=== PATIENT | female | born 1960 | race Caucasian/White ===

== ENCOUNTER 2021-11-03 01:34 | Day surgery (SDC) | payer OTHER, SELFPAY ==
[2021-11-03 08:43] VITALS: BP 122/84; PULSE 102; RESP 16; TEMP 36.2; O2SAT 100
[2021-11-03] MEDS: LACTATED RINGERS 1,000 ML 150 ML IV CONT (08:47)
--- NOTE | 2021-11-03 08:56 | WPDGICN ---
Assessment and Plan Assessment and plan (1) Family history of colonic polyps: Code(s): Z83.71 - Family history of colonic polyps Status: Acute Assessment and Plan: Patient presents for screening colonoscopy. Family history of colon polyps recently identified in her son. Plan is for surveillance colonoscopy now we may need to consider this at intervals in the future. Further recommendations will be given after endoscopy. GI Consult Note Consult date/time: 11/03/21 08:56 HPI: Tammie Harding is a 60 year old female Presents for screening colonoscopy. Patient's current weight appetite bowel movements are normal. She denies abdominal pain. She has had no bleeding. Family history is significant her son was identified as having several colon polyps recently. Patient presents today for neoplasia screening. She did have an unremarkable colonoscopy 10 years ago. Review of Systems Review of Systems: All systems reviewed & are unremarkable except as noted in HPI and below PMFSH Family History Family History (Updated 04/05/14 @ 07:13 by DOCTOR UNKNOWN) Mother Hypertension, Onset Age: 81 Family history of kidney disease Family history of coronary artery disease, Onset Age: 77 Social History Social History Smoking status: Never smoker Alcohol intake: current Drinks per week: 3 Substance use: never Substance use type: does not use Living arrangements: with friend(s) Spiritual care concerns: No Meds Home Medications and Allergies Home Medications Medication Instructions Recorded Confirmed Type ezetimibe 10 mg PO DAILY 10/22/21 11/03/21 History Allergies Allergy/AdvReac Type Severity Reaction Status Date / Time No Known Allergies Allergy Mild Verified 11/03/21 08:41 Vital Signs Vital Signs - 24 hr 11/03/21 08:43 Temperature 97.1 F L Pulse Rate 102 H Respiratory Rate 16 Blood Pressure 122/84 Pulse Oximetry 100 Exam Narrative: Physical exam reveals patient to be alert. Vital signs stable. HEENT exam is unremarkable. Patient is anicteric. Lungs are clear to auscultation and percussion. Heart is without murmur or extra sounds. Abdominal exam bowel sounds present soft nontender with no organomegaly. Digital external rectal exam is normal.
--- NOTE | 2021-11-03 09:20 | WPDANESEPPF ---
Anes - Initial Pre Proc Eval Procedure: Operation Date: 11/03/21 09:45 Proposed Procedures p Screening Colonoscopy - Mendel Osborne MD Date/Time: 11/03/21 09:20 Surgeon: Mendel Osborne MD Pre Op Diagnosis: neoplasm screening Patient Data Age: 60 Gender: F Height: 1.68 m Weight: 55.6 kg Last Vital Signs Temp 36.2 C L 11/03/21 08:43 Pulse 102 H 11/03/21 08:43 Resp 16 11/03/21 08:43 BP 122/84 11/03/21 08:43 Pulse Ox 100 11/03/21 08:43 Allergies Allergy/AdvReac Type Severity Reaction Status Date / Time No Known Allergies Allergy Mild Verified 11/03/21 08:41 Home Medications Medication Instructions Recorded Confirmed Type ezetimibe 10 mg PO DAILY 10/22/21 11/03/21 History Patient hx anesthesia problems: none Family hx anesthesia problems: none Results Review: All pre-operative results and documents have been reviewed as part of the pre-operative evaluation. [facility] Family History Family History (Updated 04/05/14 @ 07:13 by DOCTOR UNKNOWN) Mother Hypertension, Onset Age: 81 Family history of kidney disease Family history of coronary artery disease, Onset Age: 77 Social History Social History Smoking status: Never smoker Alcohol intake: current Drinks per week: 3 Substance use: never Substance use type: does not use Living arrangements: with friend(s) Spiritual care concerns: No Anes - Eval Final PreProcedure Day of Procedure 11/03/21 09:20 Patient weight: normal Heart: regular rate and rhythm Lungs: clear to auscultation and normal air movement Airway: Mallampati scale class II Neurological: alert and oriented Last oral intake: >/= 8 hours ASA classification: II Emergent: no Anesthetic plan: proceed Anesthesia type and monitoring: general GIVS Results Review: All pre-operative results and documents have been reviewed as part of the pre-operative evaluation. Informed Consent: The patient's anesthetic plan and its attendant risks and benefits were discussed with the patient/family/POA. Questions were solicited and answers provided to the satisfaction of the patient/family/POA.
[2021-11-03 09:47] VITALS: BP 126/71; PULSE 94; RESP 25; O2SAT 100
[2021-11-03 09:57] VITALS: BP 132/75; PULSE 93; RESP 16; O2SAT 100
[2021-11-03 10:07] VITALS: BP 128/79; PULSE 95; RESP 18; O2SAT 100
== END 2021-11-03 10:14 | disposition home or self-care (01) ==
PROVIDERS: PCP Physician Assistant; Visit Provider Internal Medicine Gastroenterology
PROC: 0DJD8ZZ Inspection of Lower Intestinal Tract, Via Natural or Artificial Opening Endoscopic (ICD-10-PCS; CPT 45378; principal; 2021-11-03 09:45)
DX: Z12.11 Encounter for screening for malignant neoplasm of colon (principal); K64.8 Other hemorrhoids; K57.30 Diverticulosis of large intestine without perforation or abscess without bleeding
CPT/HCPCS: 45378; J2704; J7120

== ENCOUNTER → 2022-04-24 12:37 | Outpatient (CLI) | payer OTHER, SELFPAY ==
--- NOTE | ~2022-04-24 | US_ITS ---
EXAMINATION: US transvaginal DATE: 04/24/2022 13:13 INDICATION: Unspecified ovarian cyst. Adnexal fullness on the left. TECHNIQUE: Multiple transvaginal sonographic images of the pelvis were obtained. COMPARISON: Ultrasound pelvis 02/06/17 FINDINGS: The uterus measures 9.1 x 5.1 x 4.8 cm. There is no free fluid in the pelvis. The endometrial complex measures 4 mm in thickness. There is a 1.7 cm subserosal fibroid. There is a 4.5 cm subserosal fibro id. The right ovary is not visualized. The left ovary measures 3.8 x 2.9 x 4.1 cm. There is a 3.2 cm hypoechoic mass with low-level echoes and septation in left ovary. IMPRESSION: 1. Uterine fibroids. 2. 3.2 cm mass in left ovary, which may be benign or malignant. Consider surgical evaluation. Reviewed, dictated and finalized at location A. IMPRESSION: 1. Uterine fibroids. 2. 3.2 cm mass in left ovary, which may be benign or malignant. Consider surgic al evaluation.
== END ==
PROVIDERS: PCP Physician Assistant; Visit Provider Nurse Practitioner
DX: N83.202 Unspecified ovarian cyst, left side (principal); D25.9 Leiomyoma of uterus, unspecified
CPT/HCPCS: 76830

== ENCOUNTER → 2022-12-02 09:49 | Outpatient (CLI) | payer OTHER, SELFPAY ==
--- NOTE | ~2022-12-02 | XR_ITS ---
EXAMINATION:[id number] DATE: 12/02/2022 11:45 INDICATION: Neck pain TECHNIQUE: AP, lateral, lateral swimmers and odontoid views of the cervical spine are provided. COMPARISON: None FINDINGS: Alignment is normal. There are changes of anterior fusion at C5-6. The odontoid process is intact. No fracture is identified. The vertebral body heights are maintained. There is moderate loss of intervertebral disc space height at C6-7. Small degenerative osteophytes project from the anterior endplates of multiple vertebral bodies. There is multilevel mild to moderate facet and uncovertebral joint osteoarthritis. Prevertebral soft tissues are normal. IMPRESSION: 1. Mild cervical spondylosis without acute findings. Reviewed, dictated and finalized at location B.
--- NOTE | ~2022-12-02 | MR_ITS ---
EXAMINATION: MR brain/brain stem wo/w con DATE: 12/02/2022 10:33 INDICATION: Headache. TECHNIQUE: Magnetic resonance imaging (MRI) of the brain and brainstem was performed without and with 10 mL MultiHance intravenous contrast. COMPARISON: None. FINDINGS: There are scattered areas of nonspecific increased T2-weighted signal intensity in the cere bral white matter, which is within normal limits for the patient's age. There is no intracranial hemo rrhage, acute infarction, or abnormal intracranial mass lesion. The ventricles are normal in size. Th ere is a small left mastoid effusion. The orbits are normal. IMPRESSION: 1. Normal aging brain. Reviewed, dictated and finalized at location A. IMPRESSION: 1. Normal aging brain.
== END ==
PROVIDERS: PCP Physician Assistant; Visit Provider Physician Assistant
DX: M47.812 Spondylosis without myelopathy or radiculopathy, cervical region (principal); M54.2 Cervicalgia; R51.9 Headache, unspecified
CPT/HCPCS: 70553; 72040; A9577

== ENCOUNTER 2023-11-25 13:39 | Outpatient (CLI) | payer OTHER, SELFPAY ==
--- NOTE | ~2023-11-25 | XR_ITS ---
EXAM: XR foot LT min 3V DATE: 11/25/2023 14:36 HISTORY: Left foot pain . COMPARISON: None available. FINDINGS: Slightly decreased mineralization. No fracture or dislocation. No lytic or blastic lesion. Mild joint space narrowing and osteophytosis at the first MTP joint. No erosion or periosteal change . Soft tissues within normal limits. IMPRESSION: Mild first MTP joint osteoarthritis. Reviewed, dictated and finalized at location K.
== END 2023-11-25 13:40 ==
LOC: MICIMG 13:41
PROVIDERS: PCP Chiropractor; Visit Provider Chiropractor
DX: M19.072 Primary osteoarthritis, left ankle and foot (principal)
CPT/HCPCS: 73630

== ENCOUNTER 2024-03-03 14:13 | Outpatient (CLI) | payer OTHER, SELFPAY ==
--- NOTE | ~2024-03-03 | XR_ITS ---
EXAM: XR hand RT min 3V DATE: 03/03/2024 14:22 HISTORY: no injury, pain base of thumb for 6 months . COMPARISON: None available. FINDINGS: Soft tissue anchors in the base of the fifth proximal phalange. Normal mineralization. No f racture or dislocation. No lytic or blastic lesion. Mild degenerative change at the first MCP joint. No erosion or periosteal change. Soft tissues within normal limits. IMPRESSION: Mild first MCP osteoarthritis. Reviewed, dictated and finalized at location K.
== END 2024-03-03 14:14 ==
LOC: MICIMG 14:15
PROVIDERS: PCP Physician Assistant; Visit Provider Physician Assistant
DX: M19.041 Primary osteoarthritis, right hand (principal)
CPT/HCPCS: 73130